=== PATIENT | male | born 1940 | race Caucasian/White ===

== ENCOUNTER 2017-05-23 15:50 | Inpatient (IN) | payer OTHER, MEDICAID ==
[~2017-05-23] VITALS: Ht 182.8 cm; Wt 103.2 kg
--- NOTE | ~2017-05-23 | PR ---
[place], [place] PROGRESS NOTE [id number] #: [id number] ROOM: 310 DOCTOR: KARLA BUTT MD BIRTHDATE: [birth year] DOS: 05/29/2017 CHIEF COMPLAINT: "I have been here since January, I hope I get to go home soon." SUMMARY OF THE VISIT: The patient was interviewed as he wheeled himself in the hallway. He stopped and engaged in a conversation. He continues to be pleasantly confused. He reports he has been here for several months and is anxious to return home. He does state that he came here directly from his home and has no recollection of being in a long-term care facility. For the most part, his conversation with me was pleasant. He offered no mood debility or agitation. Nurses report he has been fairly redirectable and has not exhibited the sexually inappropriate behavior that was evident upon admission. MENTAL STATUS: He is alert and oriented to self. It is unclear if he realizes that he is in the hospital. Mood does seem to be trending towards euthymia. Affect is appropriate. There are no symptoms of hypomania or valerie. Likewise, there are no overt auditory or visual hallucinations. No delusions are present. No paranoia is present. Short term memory remains poor. PLAN: I will increase his Exelon patch from 9.5 to 13.3 mg daily, maximizing its potential benefit in improving or maintaining ADLs, behavior and cognition. I will simultaneously increase the Namenda from 10 mg daily to 15 mg daily with the ultimate plan to bring the Namenda up to its maximum dose of 20 mg a day, augmenting the effectiveness of the Exelon patch. We will attempt to engage in individual and martin milieu activity with the ultimate plan to return to [facility] in [place] when psychiatrically stable. KARLA BUTT MD CM:PNTRANS KARLA BUTT MD 05/29/1738 interface
--- NOTE | ~2017-05-23 | DS ---
[place], [place] DISCHARGE SUMMARY NAME: MONICA BAEZA [facility] #: [id number] UNIT #: [id number] ROOM: 310 DOCTOR: KARLA BUTT MD BIRTHDATE: [birth year] DOS: 05/31/2017 CHIEF COMPLAINT: "I shit myself." HISTORY OF PRESENT ILLNESS: This is a 76-year-old white male who is a resident of [facility] in [place], [place]. The patient was sent to [facility] due to a significant alteration in mental status. He has become increasingly more verbally and physically aggressive. He attempted to kick open the doors on the locked unit and has asked other residents to do the same. He has been extremely sexually preoccupied and will follow staff into female residents' rooms during hands on care and tries to watch the hands on care being given. When he has been redirected, he has become both verbally and physically aggressive toward staff. He has put both residents and staff at significant risk of harm. He is admitted now to rule out any organic factors and to attempt to stabilize on medication. PAST MEDICAL HISTORY: Remarkable for an allergy to AMOXICILLIN. He also has a history of coronary artery disease, diabetes, hyperlipidemia, benign prostatic hypertrophy, GERD, hypertension. SUMMARY OF HOSPITAL COURSE: The patient was admitted to the unit where he was started on Celexa 10 mg at bedtime to decrease his libido. Additionally, he was started on low dose of Depakote 250 mg 3 times a day to decrease his impulsivity and aggression. Depakote was gradually increased then from 250 mg 3 times a day to 500 mg 3 times a day and the Celexa was increased from 10 to 20 mg a day. He was also started on Exelon patch 4.6 mg a day and Namenda 5 mg a day to impact positively on ADLs, behavior and cognition. Both the Exelon patch and Namenda were quickly brought up to their maximum doses. Exelon patch was increased to 13.3 mg a day while the Namenda was increased to 10 mg twice daily. Screening examination showed him to have a low vitamin D level of 20.6, so he was started on vitamin D 50,000 international units weekly. With the combination of the Celexa and the Depakote and the Namenda and the Exelon, the patient improved greatly. He no longer was verbally or physically aggressive. He was intrusive, but redirectable. He was not sexually inappropriate in any way. He tolerated the medications well and there was no overt somnolence, sedation, or other side effects noted. He had improved sufficiently to return to [facility] then I will follow him upon his return there. MENTAL STATUS AT DISCHARGE: The patient is alert and oriented to person, place, but not time. Mood was strongly trending towards euthymia. Affect was much more appropriate. There were no symptoms of valerie or hypomania. There were no overt auditory or visual hallucinations. No delusions, no paranoia were present. Short-term memory was poor. FINAL DIAGNOSES: Major depression, recurrent, and impulse control disorder, not otherwise specified. PLAN: The patient will be readmitted to [facility] in [place], [place]. I will follow him upon his admission there. All of his prescriptions have been printed and will be sent with him. [place], [place] DISCHARGE SUMMARY NAME: [facility]AE[id number] #: [id number] ROOM: 310 DOCTOR: KARLA BUTT MD BIRTHDATE: [birth year] KARLA BUTT MD CM:MARYA [id number] KARLA BUTT MD 05/31/17 1857 interface
--- NOTE | ~2017-05-23 | PR ---
[place], [place] PROGRESS NOTE NAME: MONICA BAEZA [facility] #: [id number] UNIT #: [id number] ROOM: 310 DOCTOR: DEE JANG BIRTHDATE: [birth year] DOS: 05/26/2017 CHIEF COMPLAINT: "Good morning." SUMMARY OF VISIT: The patient was assessed in his room. He was still in the process again of waking up. No voiced complaints. No issues per nursing. MENTAL STATUS: Alert and oriented to self only. No overt signs of auditory or visual hallucinations, delusions, paranoia, valerie or hypomania. PLAN: The patient is tolerating the adjustments in his medications quite well. His Depakote was increased, we will most likely need to check a valproic acid level in the next day or two, but no signs of side effects to the medications. Continues to do well with these medication adjustments, so I am not going to make any significant changes this morning. TING JANG CNP CM:PNTRANS [phone] DEE JANG 05/27/17 0252 interface
--- NOTE | ~2017-05-23 | PR ---
[place], [place] PROGRESS NOTE NAME: [facility] [id number] UN[facility] #: [id number] ROOM: 310 DOCTOR: KARLA BUTT MD BIRTHDATE: [birth year] DOS: 05/30/2017 Interval Note CHIEF COMPLAINT: "I am doing good. I had a hamburger for breakfast." SUMMARY OF THE VISIT: The patient was interviewed as he sat in his wheelchair in the arndt. He engaged readily in conversation and was superficially bright and pleasant. He offered no complaint. Nurses report overall he is redirectable, but does tend to interject himself in things around him that do not necessarily have anything to deal with him. He has not been sexually inappropriate or aggressive. MENTAL STATUS: He is alert and oriented to person, place, but not time. Mood is fairly euthymic. Affect is appropriate. There are no symptoms of valerie or hypomania. There are no overt auditory or visual hallucinations. No delusions, no paranoia. Short term memory remains poor. PLAN: I will go ahead and maximize the dose of Namenda up to 10 mg twice daily. Continue his other psychotropics. Continue to engage in individual and martin milieu activity with the plan to discharge then when psychiatrically stable. KARLA BUTT MD CM:PNTRANS [phone] KARLA BUTT MD 05/31/17 0317 interface
--- NOTE | ~2017-05-23 | PR ---
[place], [place] PROGRESS NOTE [id number] #: [id number] ROOM: 310 DOCTOR: KARLA BUTT MD BIRTHDATE: [birth year] DOS: 05/27/2017 CHIEF COMPLAINT: "Morning, when is breakfast?" SUMMARY OF THE VISIT: The patient was interviewed as he sat in the dining area with male and female peers. He was waiting for his breakfast, but engaged readily in conversation with me. He was pleasantly confused with time gaps. There was no mood lability or agitation noted. Likewise, there were no medication side effects noted. MENTAL STATUS: He is alert and oriented to person, possibly place, not time. Mood does seem to be trending towards euthymia. Affect is much more appropriate. There is no valerie or hypomania. There are no overt auditory or visual hallucinations. Short term memory is poor. PLAN: I will maintain his Exelon 4.6 mg daily today, but increase to 9.5 tomorrow. We will check a valproic acid level in the morning to ensure that it is therapeutic. Maintain Celexa 20 mg a day to combat both depression and decrease libido, engage in individual and martin milieu activity, returning to the least restrictive environment when stable. KARLA BUTT MD CM:PNTRANS [id number] KARLA BUTT MD 05/27/17 2244 interface
--- NOTE | ~2017-05-23 | PR ---
[place], [place] PROGRESS NOTE [id number] #: [id number] ROOM: 310 DOCTOR: KARLA BUTT MD BIRTHDATE: [birth year] DOS: 05/28/2017 CHIEF COMPLAINT: "I have been here since January." SUMMARY OF THE VISIT: The patient was interviewed as he wheeled his wheelchair in the hallway. He stopped and engaged in conversation. He remains significantly confused reporting that he feels he has been here since January and that this was the month 7. He was pleasant, however, and offered no agitation or combativeness. Nurses report similar behavior that he remains pleasantly confused. There has been no incidents of sexual inappropriate behavior. He has not been stalking any of the female residents nor has he been wandering in and out of their rooms that was so prevalent while he was at [facility]. He does seem to be tolerating the current medication regimen well without any apparent side effects. MENTAL STATUS: He is alert and oriented to self. It is unclear if he realizes he is in the hospital and he is certainly not oriented to time. Mood is fairly euthymic. Affect appropriate. There are no symptoms of valerie or hypomania. There are no overt auditory or visual hallucinations. He does process information slowly and his responses tend to be short, simple and at times inappropriate. Short term memory remains poor. PLAN: I will maintain his current dose of Depakote as his valproic acid level was therapeutic at 73.0. I will increase Namenda from 5 mg a day to 5 mg twice daily, which is augmenting the effectiveness of the Exelon patch, which is at a dose of 9.5 mg a day. Continue to engage in individual and martin milieu activity with the ultimate plan to return back to [facility] in [place] when psychiatrically stable. KARLA BUTT MD CM:PNTRANS 2 [phone] KARLA BUTT MD 05/28/17 1050 interface
--- NOTE | ~2017-05-23 | WRIGHTHP ---
[place], [place] PATIENT HISTORY AND PHYSICAL EXAM NAME: MONICA BAEZA UNIT #: [id number] ROOM: 310 DOCTOR: KARLA BUTT MD BIRTHDATE: [birth year] DOS: 05/23/2017 INITIAL PSYCHIATRIC EVALUATION CHIEF COMPLAINT: "I myself." HISTORY OF PRESENT ILLNESS: This is a 76-year-old white male who is a resident of [facility] in [place], [place]. The patient was sent to [facility] unit due to a significant alteration in mental status. The patient has become both verbally and physically aggressive. He has attempted to kick open the doors on the locked unit and has insight at other residents to do the same. He has become increasingly sexually preoccupied and follows staff in the female residents' rooms during hands-on care and tries to watch the hands-on care being given. When the staff tried to redirect him, he has become physically aggressive toward staff, putting staff at significant risk for harm. His behavior has continued to escalate to the point where female residents and staff are fearful of his behavior. He is admitted now to rule out any organic factors to attempt to stabilize on medication, to engage in individual and martin milieu activities with the ultimate plan to return to the least restrictive environment when psychiatrically stable. PAST MEDICAL HISTORY: Remarkable for AN ALLERGY TO AMOXICILLIN. He also has coronary artery disease, diabetes, hyperlipidemia, benign prostatic hypertrophy, GERD and hypertension. It is unknown whether he has a past psychiatric history. MENTAL STATUS: The patient is alert and oriented to self. It is unclear if he realizes he is in the hospital. He is certainly not oriented to time. Mood does seem to be somewhat labile. He was somewhat uncooperative and rather aloof and his conversation with me. He minimized and tended to avoid and deflect to my questions. There was no overt hostility towards me or agitation. Likewise, there were no overt auditory or visual hallucinations noted. Short-term memory is poor. DIAGNOSIS: Major depression, recurrent with psychotic features and impulse control disorder, not otherwise specified. PLAN: I have already started him on Celexa 10 mg at bedtime to decrease his sexual libido. He seems to have tolerated this well, so I will increase to 20 mg at bedtime. Additionally, I started him on a very low dose of Depakote 250 mg 3 times daily. Given the fact that he is a fairly large gentleman, I will go ahead and bring this dose up to 500 mg 3 times a day to decrease impulsivity and aggression. I will start him on Exelon patch 4.6 mg a day and augment this with Namenda 5 mg a day. Screening examinations upon admission showed him to have a low vitamin D level of 20.6. I will augment with vitamin D 50,000 International Units weekly. We will attempt to engage in individual and martin milieu activity with the ultimate plan to return back to [facility] when psychiatrically stable. [place], [place] PATIENT HISTORY AND PHYSICAL EXAM NAME: MONICA BAEZA UNIT #: [id number] ROOM: 310 DOCTOR: KARLA BUTT MD BIRTHDATE: [birth year] KARLA BUTT MD CM:HISPHYS:PATIENT HISTORY AND PHYSICAL EXAMINATION 5 2 KARLA BUTT MD 05/24/17 0901 interface
--- NOTE | ~2017-05-23 | PR ---
[place], [place] PROGRESS NOTE NAME: MONICA BAEZA [facility] #: [id number] UNIT #: [id number] ROOM: 310 DOCTOR: DEE JANG BIRTHDATE: [birth year] DOS: 05/25/2017 CHIEF COMPLAINT: "Good morning." SUMMARY OF VISIT: The patient was assessed in the dining room. He engaged in minimal conversation. No voiced complaints from him or the staff. MENTAL STATUS: Alert and oriented to self only. There are no overt signs of auditory or visual hallucinations, delusions or paranoia. Poor short-term memory. PLAN: Dr. Rodriguez did significant adjustments in his medications yesterday. He increased his Celexa to decrease his libido and he doubled his Depakote to 500 mg 3 times a day. He also started him on the Exelon patch and started him on some vitamin supplements due to low vitamin D. He seems to be tolerating these adjustments fairly well. I want to give it another 24 hours before looking at making any other changes at this point in time, especially since there has not been any behaviors and the patient has no voiced complaints and no obvious signs of any side effects of the medications, so we will continue to stay on the current medications as is, try to engage in individual and martin milieu therapy as appropriate. Long-term goal is to getting back to [facility] once psychologically stable. TING JANG CNP CM:PNTRANS 1 15 DEE JANG 05/25/171913 interface
--- NOTE | 2017-05-23 23:30 | NUR ---
MONICA BAEZA a 76 year old M admitted via ambulance from the ADMITTING as a voluntary admission. Arrived on unit at 2330. ALLERGIES: AMOXICILLIN. Vital signs are: 97.7-68-16 112/68. The POA gave verbal consent for the following forms with stated understanding: Authorization For The Release of Medical Information, Clothing List, Consent to Voluntary Admission and Hospitalization, Consent and Release Forms/Receipt of Rights, Acknowledgement of Advance Directive Information, Behavioral Health Consent Form, and Informed Consent of Medications. Admitted under the services of Dr. DAQUAN WEBSTERKARLA. A search was conducted and hazardous articles were removed. Client was oriented to the unit. CECY WEST
[2017-05-23] MEDS ORDERED: DIVALPROEX SOD125 M1 PO (23:33)
[2017-05-23] MEDS ORDERED: MEMANTINE HCL5 MG PO (23:34)
[2017-05-23] MEDS ORDERED: LEVEMIR100 UNIT/1 SC (23:36)
[2017-05-23] MEDS ORDERED: LISINOPRIL10 M1 PO (23:37)
[2017-05-23] MEDS ORDERED: OMEPRAZOLE D/R20 MG PO (23:38)
[2017-05-23] MEDS ORDERED: METOPROLOL25 MG PO (23:38)
[2017-05-23] MEDS ORDERED: ALDACTONE25 MG PO (23:39)
[2017-05-23] MEDS ORDERED: TAMSULOSIN HCL0.4 MG PO (23:40)
[2017-05-23] MEDS ORDERED: TRADJENTA5 M1 PO (23:42)
[2017-05-23] MEDS ORDERED: BRILINTA90 M1 PO (23:42)
[2017-05-23] MEDS ORDERED: DULCOLAX10 M1 R (23:47)
[2017-05-23] MEDS ORDERED: FLEET ENEMA EX230 M1 R (23:49)
--- NOTE | 2017-05-23 23:55 | NUR ---
PT WAS COOPERATIVE WITH ASSESSMENT IN THE BEGINNING THEN STARTED ANSWERING QUESTIONS WITH "WHO CARES". REFUSED TO COMPLETE THE MINI MENTAL EXAM AND CRISIS PREVENTION PLAN. WILL ATTEMPT THESE FORMS AGAIN IN THE AM. PT WOULD LAUGH HE STATED "WHO CARES". PT MAKING DEMANDS ON STAFFING TO GET HIM A SANDWICH AND BUTTERED TOAST. PT WAS PROVIDED WITH A SNACK DURING THE ASSESSMENT. DR JAY ON UNIT TO ASSESS PT AT THIS TIME. PT HAD AN UNSTEADY GAIT. A WHEEL CHAIR WAS OFFERED TO THE PATIENT TO USE. Q 15 MINUTE SAFETY CHECKS INITIATED. FALLEN STAR PROGRAM INITIATED. WHEN THE PT WAS ASKED WHAT HAPPENED PRIOR TO ADMISSION TO THE UNIT AND PT STATED "I WAS KICKED OUT OF THE OTHER HOSPITAL. I WAS SLEEPING AND THEY CAME TO WAKE ME UP AND SAID THERE WERE EXPORT MANAGER HERE TO TAKE ME"
[2017-05-24 00:02] VITALS: BP 112/68
[2017-05-24 00:26] VITALS: BP 112/68
[2017-05-24 04:59] LABS: BASO % 0.1 % (0.0-1.0); EOS # 0.4 10*3/uL (0.0-0.4); EOS % 5.5 % (1.0-4.0); HEMATOCRIT 35.3 % (42.0-52.0); HEMOGLOBIN 11.7 g/dl (14.0-18.0); LYMPH # 1.7 10*3/uL (1.3-4.4); LYMPH % 23.5 % (27.0-41.0); MEAN CELL VOLUME 93.9 fl (80.0-94.0); MEAN CORPUSCULAR HGB 31.1 pg (27.0-31.0); MEAN CORPUSCULAR HGB CONC 33.1 g/dl (33.0-37.0); MEAN PLATELET VOLUME 11.2 fl (9.6-12.3); MONO # 0.8 10*3/uL (0.1-1.0); MONO % 11.6 % (3.0-9.0); NEUT # 4.2 10*3/uL (2.3-7.9); NEUT % 58.6 % (47.0-73.0); PLATELET COUNT AUTOMATED 145 10*3/uL (130-400); RED BLOOD COUNT 3.76 10*6/uL (4.50-5.90); RED CELL DISTRI WIDTH 12.8 % (0-14.5); WHITE BLOOD COUNT 7.1 10*3/uL (4.8-10.8)
[2017-05-24 05:05] LABS: ALBUMIN 3.4 gm/dl (3.1-4.5); ALKALINE PHOSPHATASE 108 U/L (45-117); BUN 17 mg/dl (7-24); CHLORIDE 104 mmol/L (98-107); CHOLESTEROL 112 mg/dL (<200); CREATININE 1.18 mg/dL (0.70-1.30); HDL CHOLESTEROL 27 mg/dl (40-60); LDL CHOLESTEROL 15 mg/dL (9-159); POTASSIUM 4.4 mmol/L (3.5-5.1); SGOT/AST 19 IU/L (3-35); SGPT/ALT 31 U/L (12-78); SODIUM 140 mmol/L (136-145); TOTAL PROTEIN 7.1 gm/dL (6.4-8.2); TRIGLYCERIDES 348 mg/dl (<150); VLDL CHOLESTEROL 70 mg/dL (6-40)
--- NOTE | 2017-05-24 05:26 | NUR ---
24 HR chart check completed.
--- NOTE | 2017-05-24 05:27 | NUR ---
PT SLEPT APPROXIMATELY 3 HOURS THIS SHIFT. NO S/S OF DISTRESS NO C/O PAIN.
[2017-05-24 06:32] LABS: VITAMIN D, 25-HYDROXY 20.6 ng/mL (30-100)
[2017-05-24 08:25] VITALS: BP 118/62
--- NOTE | 2017-05-24 09:01 | NUR ---
Patient not available for OT evaluation this am. OTR will attempt at a later time. Katelynn De La Paz OTR/L
--- NOTE | 2017-05-24 09:35 | NUR ---
Physical therapy PAtient with staff at this time and unavailable for PT evalaution. Will attempt at a later date. Thank you for this referral. Elba Moeller,PT
--- NOTE | 2017-05-24 09:44 | NUR ---
TREATMENT TEAM WAS HELD WITH THE FOLLOWING: DR. BUTT, MEDICAL STUDENT, RNS, AT, SW. DR. BUTT ADJUSTING MEDICATIONS. SEXUALLY INAPPROPRIATE. PENDIG DISCHARGE FOR END OF NEXT WEEK.
--- NOTE | 2017-05-24 11:00 | NUR ---
DR. ROJO HERE TO SEE PT AT THIS TIME.
--- NOTE | 2017-05-24 11:02 | NUR ---
Exercise/Reminiscing/Funny Things Patient did not attend group. Patient was encouraged to join group but refused. Patient stated "I can attend group just fine from the end of the arndt." I will attempt to encourage patient to join the afternoon group.
--- NOTE | 2017-05-24 11:05 | NUR ---
PHYSICAL THERAPY PAtient refuses PT is date. Thank you for this referral. Elba sifuentes,PT
--- NOTE | 2017-05-24 11:26 | NUR ---
Patient refuses OT evaluation this date. OTR will attempt at a later date. Katelynn De La Paz OTR/L
--- NOTE | 2017-05-24 12:12 | NUR ---
case management received a message that patient now has [employer] insurance instead of medicare. called nikkie Chacko, approved 6 days, reference number is [id number]. last covered day is 05/28/17 with next review 05/28/17
--- NOTE | 2017-05-24 13:35 | NUR ---
PT IS ALERT AND ORIENTED TO PERSON ONLY, CONFUSED IN OTHER ASPECTS. ST/LT MEMORY DEFICITS NOTED. RESPIRATIONS EASY ON ROOM AIR. MOOD IS DEPRESSED, ANGRY/IRRITABLE WITH FLAT AFFECT. SPEECH IS WNL AND COHERENT, ABLE TO MAKE NEEDS KNOWN WITHOUT DIFFICULTY. MEDICATION COMPLIANT. PT REFUSED TO ENGAGE IN COVERSATION WITH THIS NURSE, REFUSED TO ANSWER WHETHER OR NOT HE WAS EXPERIENCING HALLUCINATIONS OR SI/HI - PT STATES "WHO CARES." NO RESPONSE TO INTERNAL STIMULI NOTED. PT MAINTAINING SAFE BEHAVIOR. PT ISOLATIVE, REFUSES TO PARTICIPATE IN GROUPS/ACTIVITIES, HAS SPENT THE MAJORITY OF THE SHIFT AT THE END OF THE HALLWAY LOOKING OUT THE WINDOW. PT INCONTINENT OF LARGE AMOUNT OF DIARRHEA THIS AM, UPON ATTEMPTING TO ASSIST PT WITH HYGIENE CARE PT MADE SEVERAL SEXUALLY INAPPROPRIATE COMMENTS TO THIS NURSE, PT EDUCATED THAT THIS TYPE OF COMMENT IS INAPPROPRIATE. PT LAUGHED AND STATES "WELL I'LL DO IT MYSELF THEN". PT SHOWERED BY 2 MILIEU STAFF, PT PARTICIPATED IN HYGIENE CARE. PT UTILIZES WHEELCHAIR FOR MOBILITY, SELF PROPELS ON UNIT, GAIT UNSTEADY, FALL RISK PRECAUTIONS MAINTAINED. Q15 MIN MONITORING CONTINUES PER ORDERS, REFER TO [facility] FLOWSHEET FOR SPECIFIC MONITORING.
--- NOTE | 2017-05-24 13:47 | NUR ---
PT REFUSED TO PARTICIPATE IN PERSONAL CRISIS PREVENTION PLAN OR MMSE, PT STATES "WHO KNOWS."
--- NOTE | 2017-05-24 15:18 | NUR ---
SAGE Patient did not attend group this afternoon. Patient was encouraged and educated on the benifits but continued to refuse.
--- NOTE | 2017-05-24 18:54 | NUR ---
SHIFT CHART CHECK COMPLETED.
[2017-05-24 20:30] VITALS: BP 120/64
--- NOTE | 2017-05-24 20:55 | NUR ---
PATIENT AGITATED WHEN APPROACHED BY NURSING STAFF WITH MEDICATIONS. PATIENT ISOLATIVE AND WITHDRAWN TO ROOM. PATIENT VOICED NO HALLUCINATIONS OR DELUSIONS. PATIENT NOT SEXUALLY INAPPROPRIATE AT THIS TIME. MEDICATION COMPLIANT
--- NOTE | 2017-05-25 04:43 | NUR ---
24 HR chart check completed.
--- NOTE | 2017-05-25 05:33 | NUR ---
PATIENT UP IN WHEELCHAIR SELF PROPELLING IN HALLWAY. Q 15 MINUTE SAFETY CHECKS MAINTAINED. PATIENT INCONTINENT OF BOWELS X 2. VOICES NO COMPLAINTS OF PAIN OR DISCOMFORT AT THIS TIME
[2017-05-25 08:19] VITALS: BP 115/65
--- NOTE | 2017-05-25 11:19 | NUR ---
Goals, remenissing and would you rather Patient did not attend group. " I would rather sleep" is what patient stated even with education of benefits of attending group.
--- NOTE | 2017-05-25 13:16 | NUR ---
Tan is compliant with medications. He has been noted to wander about the unit in his wheelchair and requires reminding to come away from exit doors. He has required limit setting on some behavior as he is noted to make rude comments to a male peer. Also while being assisted to the bathroom he was noted to make inappropriate sexual comments to staff, requiring limit setting. Confusion is noted and he is oriented to person only. No overt s/s of internal stimuli noted. Appetite is good. Refer to [facility] flowsheet for specific monitoring. Haroldo De La Garza in to see him today.
[2017-05-25 20:06] VITALS: BP 118/66
--- NOTE | 2017-05-25 21:46 | NUR ---
PT ORIENTED TO NAME ONLY. PT AFFECT IS BLUNTED. PT ISOLATED TO ROOM FOR THE MAJORITY OF THE SHIFT. ENCOURAGED PT TO VERBALIZE HOW HIS DAY WENT IN HOPES TO [employer] [place]. PT SAID "FINE". PT DENIES SI/HI, HALLUCINATIONS OR DELUSIONAL THOUGHT PROCESSES. CONTINUE TO MONITOR FOR CHANGES IN BEHAVIOR. REFER TO FLOWSHEET FOR ADDITIONAL INFO.
--- NOTE | 2017-05-25 23:07 | NUR ---
24HR CHART CHECK COMPLETE
--- NOTE | 2017-05-26 06:54 | NUR ---
PT SLEPT >8HRS, UNINTERRUPTED.
[2017-05-26 07:36] VITALS: BP 111/56
--- NOTE | 2017-05-26 15:22 | NUR ---
Tan is compliant with medications. No agitation has been noted thus far today. Confusion persists. He exhibits a disinterest in talking with staff when approached, although he does answer questions asked with brief statements. No aggression towards staff or peers has been noted. Denies experiencing any sensory disturbances. No delusions voiced, however, verbalization is minimal. It is reported that aTn has made sexually inappropriate comments to milieu staff during assistance with toileting and is unreceptive to redirection during those times. Refer to [facility] flowsheet for specific monitoring today.
[2017-05-26 20:08] VITALS: BP 108/74
--- NOTE | 2017-05-27 00:54 | NUR ---
24 HR chart check completed.
--- NOTE | 2017-05-27 06:44 | NUR ---
PT COMPLIANT WITH MEDICATION AND VERBALIZES SOME UNDERSTANDING OF MED EDUCATION, CONTINUE TO EDUCATE NEEDED. PT CONTINUES TO BE SHORT AND DEMANDING WITH STAFF AT TIMES. NO OUTBURSTS OF AGRESSION NOTED THIS SHIFT. BED AND BODY ALARM IN PLACE, YELLOW SOCKS AND SINAGE FOR FALL PRECAUTION. CONTINUE PLAN OF CARE AND REDIRECT NECESSARY.
[2017-05-27 08:07] VITALS: BP 106/63
--- NOTE | 2017-05-27 08:31 | NUR ---
TREATMENT TEAM WAS HELD WITH THE FOLLOWING: DR. BUTT, RNs, AT, SWs.
--- NOTE | 2017-05-27 09:25 | NUR ---
PHYSICAL THERAPY PAtient refuses PT this date. Thank you for this referral. Elba Moeller,PT
--- NOTE | 2017-05-27 09:32 | NUR ---
Patient approached for Occupational Therapy evaluation this date. Patient declined stating that it was Saturday and he didn't work on Saturday, when corrected that it was Saturday, patient stated "oh, it's ". Patient then declined OT evaluation this date. OTR will recheck at a later date. Katelynn De La Paz OTR/leonela
[2017-05-27 10:57] VITALS: BP 125/68
--- NOTE | 2017-05-27 11:01 | NUR ---
DR. ROJO ON UNIT TO SEE PATIENT.
--- NOTE | 2017-05-27 11:14 | NUR ---
Goals/Exercise/I am Grateful for.... Patient was in attendence for group but refused to participate. When patient was asked a direct question or prompted to join in patient refused. While in attendence patient did not show any aggresive behaviors
--- NOTE | 2017-05-27 14:30 | NUR ---
Spoke with Triston, there is a bed hold and pt. to come back LTC, no pre-cert. needed.
--- NOTE | 2017-05-27 15:12 | NUR ---
Jeopardy Coping skills, anger management and feelings/therapy group Patient declinded to attend group. Patient was sitting at the end of hallway and shook his head no when asked to join group. Educated patient on importance of group therapy however continued to decline.
--- NOTE | 2017-05-27 15:49 | NUR ---
PATIENT IS ALERT TO SELF ONLY WITH CONFUSION. RESPIRATIONS ARE EASY, NON-LABORED ON ROOM AIR. PATIENT IS ABLE TO ANSWER QUESTIONS APPROPRIATELY. NO ASSAULTIVE OR SEXUALLY INAPPROPRIATE BEHAVIORS NOTED. PATIENT IS SLIGHTLY IRRITABLE AND DEPRESSEDL. CONFUSED THOUGHT PROCESS; DENIES ANY HALLUCINATIONS, DELUSION, HI/SI OR PAIN NOTED. PATIENT IS INTERACTIVE WITH STAFF, ISOLATIVE FROM OTHER PATIENTS. MEDICATION COMPLIANT WITH EDUCATION PROVIDED. 1 PERSON ASSIST WITH ACTIVITIES OF DAILY LIVING, SET UP FOR MEALS, MEAL INTAKES ARE GOOD WITH ADEQUATE FLUIDS. SELF PROPELS IN WHEELCHAIR. CONTINENT OF BOWEL AND BLADDER. Q 15 MINUTE SAFETY CHECKS MAINTAINED.
[2017-05-27 19:49] VITALS: BP 116/59
--- NOTE | 2017-05-27 21:41 | NUR ---
24 HR chart check completed.
--- NOTE | 2017-05-28 03:21 | NUR ---
PT ALERT TO PERSON ONLY, ABLE TO MAKE NEEDS KNOWN AND RESPOND TO SOME QUESTIONS APPROPRIATELY. IRRATABLE AND ISOLATIVE TO PEERS. REMOVING BRIEF IN HALLWAY EASILY REDIRECTED BY STAFF TO SHOWER. HESITANT AT FIRST TO SHOWER BUT AGREEABLE WITH COAXING, SHAVE PROVIDED. REINFORCEMENT OF EDUCATION PROVIDED ON MEDICATIONS PT UNABLE TO VERBALIZE UNDERSTANDING AT THIS TIME. YELLOW SOCKS AND SINAGE, BED AND BODY ALARM INTACT AND FUNCTIONING, Q 15 MIN CHECKS FOR SAFETY. PT PROVIDED 1-1 AND EMOTIONAL SUPPORT DUE TO INCONTINENCE. MED COMPLIANT WITH OUT COAXING. CONTINUE TO REORIENT TO PLACE AND TIME AND REDIRECT NECESSARY. EXELON 9.5 INCREASED TODAY CONTINUE TO MONITOR FOR SIDE EFFECTS OF MEDICATION.
--- NOTE | 2017-05-28 06:50 | NUR ---
PT AWAKE IN CHAIR PROPELLING SELF THROUGH UNIT SINCE 0215 AM. PT SLEPT 5 HOURS.
[2017-05-28 07:51] VITALS: BP 126/66
--- NOTE | 2017-05-28 08:25 | NUR ---
PHYSICAL THERAPY PAtient continues to refuse PT services. Reports he does not want PT services. Will d/c PT orders. Thank you for this referral. Agnes Moeller,PT
--- NOTE | 2017-05-28 10:49 | NUR ---
Goals, exercise and self esteem group Patient declined to attend group. Patient stated " Im ok here in the hallway." Patient educated on importance of participation however continued to decline.
--- NOTE | 2017-05-28 10:53 | NUR ---
Elmira Benavides CNP of hospitalist group here to see pt at this time. Update given.
--- NOTE | 2017-05-28 11:57 | NUR ---
PT IS ALERT AND ORIENTED TO SELF WITH CONFUSION NOTED. ST/LT MEMORY DEFICITS NOTED. RESPIRATIONS EASY ON ROOM AIR. MOOD APPEARS DEPRESSED, ANGRY/IRRITABLE AT TIMES. AFFECT IS BLUNTED. SPEECH IS WNL AND COHERENT, ABLE TO VERBALIZE NEEDS. PT DENIES SI/HI. PT DENIES HALLUCINATIONS, NO RESPONSE TO INTERNAL STIMULI NOTED. NO PARANOIA/DELUSIONS NOTED. PT CONTINUES TO BE ISOLATIVE THIS AM, HOWEVER; THIS AFTERNOON PT HAS JOINED THE GROUP ROOM AND IS WATCHING TV. PT UTILIZES WHEELCHAIR FOR MOBILITY ON UNIT, ABLE TO SELF PROPEL AROUND UNIT AD LACHO, PT INCONTINENT OF LARGE BM THIS MORNING, ENCOURAGED TO COME TO STAFF FOR ASSISTANCE TO BATHROOM, PT VERALIZED UNDERSTANDING. PT FEEDS SELF, DISPLAYS GOOD APPETITE WITH ADEQUATE FLUID INTAKE. NO AGRESSIVE OR SEXUALLY INAPPROPRIATE BEHAVIORS NOTED OF THIS TIME THIS SHIFT, WILL REDIRECT NEEDED IF THESE BEHAVIORS OCCUR. Q15 MIN SAFETY CHECKS CONTINUE PER POLICY. PLAN TO CONTINUE CURRENT TX PLAN. REFER TO [facility] FLOWSHEET FOR SPECIFIC MONITORING.
--- NOTE | 2017-05-28 15:16 | NUR ---
[facility] Patient did not attend group. Patient continues to refuse to join group.
--- NOTE | 2017-05-28 18:28 | NUR ---
TREATMENT TEAM WAS HELD WITHTHE FOLLOWING: DR. BUTT, MEDICAL STUDENT, RNs, ATs, SW. PENDING [place] FOR Saturday05-31-17.
[2017-05-28 19:43] VITALS: BP 128/68
--- NOTE | 2017-05-28 21:45 | NUR ---
PATIENT AGITATED, ISOLATIVE, AND WITHDRAWN. PATIENT IN ROOM AND UPSET WHEN THIS NURSE ATTEMPTED TO GIVE PATIENT MEDICATIONS. PATIENT MEDICATION COMPLIANT. PATIENT WITH NO COMBATIVE BEHAVIOR. PATIENT WITH CONFUSION WITH NO HALLUCINATIONS OR DELUSIONS. NO SUICIDE OR HOMICIDAL IDEATIONS.
--- NOTE | 2017-05-29 02:30 | NUR ---
PATIENT INCONTINENT OF BOWELS. NURSING STAFF ATTEMPTED TO HELP PATIENT WITH INCONTINENT EPISODE AND MAKING INAPPROPRIATE GESTURES. PATIENT SHOWERED AFTER INCONTINECE EPISODE.
--- NOTE | 2017-05-29 03:06 | NUR ---
PATIENT INCONTIENT OF BOWELS. NURSING STAFF ATTEMPTED TO HELP PATIENT GET CLEANED UP AND PATIENT TOUCHED HER BREAST. NURSING STAFF EXITED ROOM AND PATIENT STATED WATCH YOUR BUNS.
--- NOTE | 2017-05-29 05:27 | NUR ---
Q 15 MINUTE CHECKS MAINTAINED. SLEPT 4 HOUR INTERRUPTED THROUGHOUT SHIFT. VOICES NO COMPLAINTS OF PAIN OR DISCOMFORT AT THIS TIME
--- NOTE | 2017-05-29 05:32 | NUR ---
24 HR chart check completed.
[2017-05-29 07:38] VITALS: BP 125/59
--- NOTE | 2017-05-29 10:56 | NUR ---
Goals, exercise and triva Patient declined to attend group. Patient states " Im fine in the hallway." Patient continues to be isolative and withdrawn from group.
--- NOTE | 2017-05-29 13:35 | NUR ---
JIMY spoke with marie at [facility] to notify her that pt. will be d/c'ed on Saturday. No pre-cert. needed.
--- NOTE | 2017-05-29 13:50 | NUR ---
Mood is depressed. Limited in verbalization during interaction with staff. Exhibits a disinterest in talking with staff and exhibits an indifferent attitude with peers. It is reported that during activities in the dining room that Tan kept turning the lights off and on and stated to the milieu therapist, "I like to cause trouble." During his conversation with staff he made no mention of this behavior. When questioned regarding as to whether or not he was experiencing any thoughts of self harm or harm to others, he denies. He also, however, denies having any feelings of depression. States, I just want to get out of here." Transports himself about the unit via wheelchair. Refusing to wear socks. Appetite is good for meals. Dr. Rodriguez in to see him today with orders received. Refer to [facility] flowsheet for specific monitoring.
--- NOTE | 2017-05-29 15:04 | NUR ---
Positive Traits:I am a Star... Patient did not attend group. Patient continually refuses to join group. At the end of group patient came to the door of the activity room and acted as if he was going to turn off the lights. One patient told him not to which in turn he did,upsetting some patients. One patient made the comment "He likes to antagonize people." With another patient stating "Yes he does." This staff member asked the patient to not bother the other patients if he didnt want to be around them,to which patient just smiled.
--- NOTE | 2017-05-29 15:58 | NUR ---
Occupational Therapy offered to patient this date on 3. Patient adamently but politely declined OT. D/C OT at this time. Thank you for this referral. Katelynn De La Paz OTR/L
[2017-05-29 19:41] VITALS: BP 110/55
--- NOTE | 2017-05-30 00:15 | NUR ---
24 HR chart check completed.
--- NOTE | 2017-05-30 07:00 | NUR ---
PT HAS BEEN OBSERVED ON Q 15 MIN CHECKS & HAS SLEPT QUIETLY THROUGHOUT THE SHIFT PAST 2200.
[2017-05-30 07:58] VITALS: BP 138/63
--- NOTE | 2017-05-30 08:05 | NUR ---
pt. to be d/c'ed tomorrow at 11am via [facility]. left vm for poa that pt will be d/c'ed around 11am tomorrow and that if he had any questions that he can call SW at .
--- NOTE | 2017-05-30 08:07 | NUR ---
pt to be d/c'ed back to [facility], facility already notified yesterday about pt d/c.
--- NOTE | 2017-05-30 09:16 | NUR ---
MARIE PERRY CHIEF SPECIALIST LEED ON UNIT TO SEE PATIENT.
--- NOTE | 2017-05-30 11:18 | NUR ---
JIMY spoke with pt. pt. ready to go back to [facility] tomorrow.
--- NOTE | 2017-05-30 11:33 | NUR ---
PATIENT IS ALERT TO PERSON WITH CONFUSION. RESPIRATIONS ARE EASY, NON LABORED ON ROOM AIR. DENIES ANY HALLUCINATIONS, DELUSIONS, HI/SI OR PAIN. MOOD IS DEPRESSED AND IRRITABLE AT TIMES BUT IMPROVED IS NOTED. 1 PERSON ASSIST WITH ACTIVITIES OF DAILY LIVING. SET UP FOR MEALS, INCONTINENT OF BOWEL AND BLADDER. PATIENT SELF PROPELS IN WHEELCHAIR, ISOLATIVE IN HALLWAY OR QUIET ROOM, ENCOURAGE TO PARTICIPATE IN GROUP BUT DECLINES. MEDICAITON COMPLIANT WITH EDUCATION PROVIDED. Q 15 MINUTE SAFETY CHECKS MAINTIANED. CONTINUE TO MONITOR FOR AGITATION AND REDIRECT NEEDED.
--- NOTE | 2017-05-30 11:36 | NUR ---
Goals,Exercise and Trivia Patient did not attend group this morning. Patient was encouraged to join several times but refused each time
--- NOTE | 2017-05-30 12:56 | NUR ---
case management received a message that stay has been approved for 05/29 and 05/30 with nr on 05/30 if patient is not discharged
[2017-05-30 20:15] VITALS: BP 152/62
--- NOTE | 2017-05-31 01:06 | NUR ---
PT ALERT AND ORIENTED TO NAME ONLY. PT ISOLATIVE TO ROOM. WAS EVALUATED IN BED. WHEN I AWOKE HIM FOR MEDICATIONS, THE PATIENT WAS FOUL MOUTHED AND AGITATED, YET, TOOK ALL OF HIS MEDICATIONS. REFUSED TO SPEAK ANY FURTHER TO NURSE. WILL REATTEMPT CONVERSATION IN THE AM. CONTINUE TO MONITOR FOR CHANGES IN BEHAVIOR. REFER TO FLOWSHEET FOR ADDITIONAL INFO
--- NOTE | 2017-05-31 03:06 | NUR ---
24HR CHART CHECKS COMPLETE
--- NOTE | 2017-05-31 06:13 | NUR ---
PT SLEPT >7HRS, UNINTERRUPTED.
[2017-05-31 08:00] VITALS: BP 119/66
[2017-05-31] MEDS ORDERED: MEMANTINE HCL10 MG PO (08:21)
[2017-05-31] MEDS ORDERED: Vitamin D PO (08:21)
[2017-05-31] MEDS ORDERED: CITALOPRAM HYDR20 MG PO (08:21)
[2017-05-31] MEDS ORDERED: DIVALPROEX SOD500 MG PO (08:21)
[2017-05-31] MEDS ORDERED: EXELON13.3 MG/21 T (08:21)
--- NOTE | 2017-05-31 08:48 | NUR ---
05/30/17 Afternoon Coping with various feelings/emoji face suncatchers Patient did not attend group. Patient absolutly refuses every encouragement offered to him
--- NOTE | 2017-05-31 08:50 | NUR ---
pt to be d/c'ed this date via [facility] to [facility]. pt. states "ok". pt to leave at 11am. Triston at facility notified that pt. will be leaving at 11am
--- NOTE | 2017-05-31 11:17 | NUR ---
Goals/Exercise/Reminiscing Patient did not attend group.Patient continuely refuses to come to group.
--- NOTE | 2017-05-31 11:20 | NUR ---
PT LEFT VIA AMBULANCE, PT ASSISTED HIMSELF UP TO THE GURNEY, PT RECEIVED AL HIS PERSONAL BELONGINGS, VSS, PT WAS CALM AND COOPORATIVE, DISHCARGE INSTRUCTIONS, MEDICARE, CONTINUING CARE SENT WITH PATIENT AND COPY SENT TO [facility]
== END 2017-05-31 11:24 | DRG 885 ==
LOC: 3N 15:50
PROVIDERS: ADMIT Psychiatry & Neurology Psychiatry
DX: F33.3 Major depressive disorder, recurrent, severe with psychotic symptoms (principal); E13.8 Other specified diabetes mellitus with unspecified complications; I50.42 Chronic combined systolic (congestive) and diastolic (congestive) heart failure; I11.0 Hypertensive heart disease with heart failure; F23 Brief psychotic disorder; G30.9 Alzheimer's disease, unspecified; F02.80 Dementia in other diseases classified elsewhere, unspecified severity, without behavioral disturbance, psychotic disturbance, mood disturbance, and anxiety; F63.9 Impulse disorder, unspecified; R33.9 Retention of urine, unspecified; I25.10 Atherosclerotic heart disease of native coronary artery without angina pectoris; N40.1 Benign prostatic hyperplasia with lower urinary tract symptoms; K21.9 Gastro-esophageal reflux disease without esophagitis; K59.00 Constipation, unspecified; E55.9 Vitamin D deficiency, unspecified; E78.1 Pure hyperglyceridemia; Z88.1 Allergy status to other antibiotic agents; Z79.4 Long term (current) use of insulin; Z79.899 Other long term (current) drug therapy; I25.2 Old myocardial infarction